=== PATIENT | female | born 1970 | race Caucasian/White ===

== ENCOUNTER → 2017-08-14 12:49 | Outpatient (CLI) | payer BC ==
[2015-07-08 06:06] VITALS: BMI 36.0
[~2017-08-14 12:49] MED LIST: CELEXA20 MG PO; LEVOTHYROXINE50 MCG PO; METAMUCIL1042 GM PO; MULTIPLE VITAMI1 TA1 PO; NORVASC5 MG PO; PROBIOTIC1 EAC1 PO
== END | disposition home or self-care (01) ==
LOC: D.US 12:49
DX: I10 Essential (primary) hypertension (principal)